=== PATIENT | male | born 1990 | race Caucasian/White ===

== ENCOUNTER → 2021-06-07 15:19 | Outpatient (CLI) | payer OTHER, SELFPAY ==
--- NOTE | 2021-06-07 15:25 | DI.MRI.S_ITS ---
PROCEDURE: MR ANKLE LT WO CON INDICATIONS: Pain in left ankle and joints of left foot TECHNIQUE: Noncontrast sagittal T1 spin echo and T2 fast spin echo with fat saturation, axial proton density fast spin echo and T2 fast spin echo with fat saturation, coronal T1 spin echo and T2 fast spin echo with fat saturation through the ankle/hindfoot. COMPARISON: None. FINDINGS: Image quality: There is mild motion artifact and mild inhomogeneous fat saturation. Bones and joints: No bone marrow contusions or fractures. No hindfoot coalitions. No osteochondral injuries of the talar dome. No pathologic joint effusions. Medial structures: The posterior tibialis, flexor digitorum longus, and flexor hallucis longus tendons are intact. The posterior tibial neurovascular bundle appears normal within the tarsal tunnel, without extrinsic mass effect. There is mild edema along the superficial layer of the deltoid ligament which is mildly attenuated suggestive of a mild sprain. The deep layer of the deltoid ligament appears intact. There is also mild edema along the superomedial calcaneonavicular component of the spring ligament which may reflect sequelae of a mild sprain or degeneration. The remaining components of the spring ligament are also slightly attenuated with associated mild edema also suggestive of mild ligamentous sprains. Lateral structures: The anterior talofibular, calcaneofibular, and posterior talofibular ligaments appear intact. More superiorly, the anterior and posterior tibiofibular ligaments appear intact, as is the intermalleolar ligament. The tibiofibular syndesmosis is normal in width at 2 mm or less. The peroneus longus and brevis tendons demonstrate normal location and morphology. Adjacent bony peroneal tubercle and retrotrochlear prominence are normal in size. The sinus tarsi demonstrates normal fatty signal, without edema, fibrosis, or cyst formation. The calcaneonavicular and calcaneocuboid components of the bifurcate ligament appear intact. The dorsal calcaneocuboid ligament appears intact. Anterior structures: The tibialis anterior, extensor hallucis longus, and extensor digitorum longus tendons appear intact. The dorsal talonavicular ligament appears intact. Posterior and plantar structures: Achilles tendon is intact. Medial and lateral bands of the plantar fascia are of normal thickness. No abductor digiti quinti muscle atrophy to suggest Randall neuropathy. IMPRESSION: 1. Findings compatible with sequelae of mild sprains or degeneration of the spring ligament components. 2. Suspected mild sprain of the superficial layer of the deltoid ligament. The Dictated by: Guillaume Tolliver M.D. on 06/07/2021 at 17:16 Approved by: Guillaume Tolliver M.D. on 06/07/2021 at 17:28
== END ==
PROVIDERS: Referring Provider Podiatrist; Visit Provider Podiatrist
DX: M25.572 Pain in left ankle and joints of left foot (principal); M76.62 Achilles tendinitis, left leg
CPT/HCPCS: 73721

== ENCOUNTER → 2021-10-30 15:01 | Outpatient (CLI) | payer OTHER, SELFPAY | PROVIDERS: Visit Provider Nurse Practitioner Family | DX: J02.9 Acute pharyngitis, unspecified (principal) | CPT/HCPCS: 87070 ==